=== PATIENT | male | born 1945 | race Caucasian/White ===

== ENCOUNTER 2016-12-18 05:49 | Inpatient (IN) | payer MEDICARE ==
[2016-12-11 21:06] LABS: BASOPHILS 0.5 %; BASOPHILS ABSOLUTE 0.04 10/3/uL (0.0-0.16); EOSINOPHILS 5.3 %; EOSINOPHILS ABSOLUTE 0.39 10/3/uL (0.0-0.53); IMMATURE GRANULOCYTES 0.1 %; IMMATURE GRANULOCYTES ABSOLUTE 0.01 10/3/uL (0.0-0.11); LYMPHOCYTES 22.6 %; LYMPHOCYTES ABSOLUTE 1.65 10/3/uL (0.67-4.30); MEAN PLATELET VOLUME 10.3 fL (9.2-13.0); MONOCYTES 7.5 %; MONOCYTES ABSOLUTE 0.55 10/3/uL (0.21-1.20); NEUTROPHILS ABSOLUTE 4.66 10/3/uL (2.02-8.40); RBC DISTRIBUTION WIDTH 14.8 % (12.0-16.0); RED CELL COUNT 4.98 10/6/uL (4.7-6.1); WHITE BLOOD CELLS 7.3 10/3/uL (4.5-10.5)
[2016-12-11 21:07] LABS: HEMATOCRIT 47.8 % (40.0-51.0); HEMOGLOBIN 16.1 g/dL (13.6-17.8); MEAN CORPUS HGB CONC 33.7 g/dL (32.0-36.0); MEAN CORPUSCULAR HEMOGLOB 32.3 pg (26.0-34.0); PLATELET COUNT 168 10/3/uL (150-400)
[2016-12-11 21:08] LABS: MANUAL DIFF NO %
[2016-12-11 21:16] LABS: CALCIUM, SERUM 9.3 MG/DL (8.5-10.4); CHLORIDE, SERUM 104 MMOL/L (96-112); CO2 (CARBON DIOXIDE) 28 MMOL/L (24-34); CREATININE 1.88 MG/DL (0.70-1.30); GFR AFRICAN AMERICAN 40 ML/MIN (>=60); GFR NON AFRICAN AMERICAN 35 ML/MIN (>=60); POTASSIUM, SERUM 4.3 MMOL/L (3.5-5.3); SODIUM, SERUM 140 MMOL/L (135-148)
[2016-12-11 21:17] LABS: BUN (BLOOD UREA NITROGEN) 21 MG/DL (6-23); GLUCOSE, SERUM 136 MG/DL (60-99)
[2016-12-11 21:18] LABS: ASCORBIC ACID (UR NOT ORDER) NEG (NEG); BILIRUBIN, URINE NEGATIVE (NEG); KETONE, URINE NEGATIVE (NEG); LEUKOCYTE ESTERASE(NOT OR NEG (NEG); WBC (NOT ORDERED) (RFLEX) < 1 (0-5)
[2016-12-11 21:24] LABS: PROTIME (NOT ORD) 13.4 SEC (12.0-14.5)
--- NOTE | ~2016-12-18 | OP ---
Record Of Operation [facility] [address] [place]. [address] NAME: OSMIN RAMÍREZ : 41 STATUS : ADM IN PAT#: [id number] AGE: 71 ADM/REG DATE : 12/18/16 MR#: [id number] REPORT SERV DATE: 12/19/16 DICTATED BY: BERNABE CORONADO DATE: 12/18/16 REPORT STATUS : Draft TRANSCRIBED BY: MODL DATE: 12/18/16 DATE OF PROCEDURE: 12/18/2016 SURGEON: Bernabe Coronado MD OPERATIVE CONTACT WORKER: DULCE Galvez COMPLICATIONS: None. ESTIMATED BLOOD LOSS: Less than 150 mL. DISPOSITION: Stable to recovery room. ANESTHESIA: General with interscalene block augmentation for postoperative pain control. PREOPERATIVE DIAGNOSES: 1. Right shoulder pain. 2. End-stage glenohumeral joint osteoarthritis. POSTOPERATIVE DIAGNOSIS: 1. Right shoulder pain. 2. End-stage glenohumeral joint osteoarthritis. OPERATIVE PROCEDURE: Right total shoulder arthroplasty using Biomet comprehensive total shoulder system. IMPLANTS USED: A 4 mm large glenoid component with Regenerex post, a 54 x 21 mm modular head with C offset, and an 11 x 83 mm mini-humeral stem. OPERATIVE PROCEDURE: The diagnoses listed above as well as the recommended surgical procedure and risks and benefits thereof were discussed in full detail with John Ramírez and family on the morning of 12/18/2016. The patient and family asked appropriate questions which were answered to their satisfaction. An informed consent was signed, witnessed, and place in the chart. The right upper extremity was marked for confirmation and an interscalene block was placed by the anesthesia team with good success. The patient was then wheeled to the operative arena where general endotracheal anesthesia was administered. The patient was placed in the beachchair positioner with all nonoperative extremities and head well padded and secured for the duration of the case. The patient received pre- operative antibiotics. A surgical pause was performed confirming both the correct patient as well as the proper surgical site and procedure. All present were in agreement. All standard anatomical landmarks as well as deltopectoral incision site were demarcated using a sterile marking pin. A 10-blade was used to create an 8 cm curvilinear incision just lateral to the coracoid process and directed towards the lateral insertion of the deltoid. The soft tissues were dissected down sharply to expose the deltopectoral fascia. The cephalic vein and the fat stripe were identified. The vein was retracted medially using Record Of Operation [facility] [address] [place]. [address] NAME: OSMIN RAMÍREZ : 41 STATUS : ADM IN PAT#: [id number] AGE: 71 ADM/REG DATE : 12/18/16 MR#: [id number] REPORT SERV DATE: 12/19/16 DICTATED BY: BERNABE CORONADO DATE: 12/18/16 REPORT STATUS : Draft TRANSCRIBED BY: EVELYN DATE: 12/18/16 careful sharp dissection. Next, a Donohue Loza retractor was placed retracting the deltoid laterally and the pectoralis and coracobrachialis medially. The deltopectoral interval was the further exposed and the clavipectoral fascia was identified. Electrocautery was used to split the clavipectoral fascia exposing the anterior surface of the subscapularis. The lesser tuberosity was identified and the subscapularis was released 1 cm medial to the lesser tuberosity. The subscapularis was then tagged using Fiber Wire suture for later repair. The biceps tendon was then released and tagged as well for later tenodesis. The glenohumeral joint was then dislocated and the humeral head was brought out the operative wound very carefully. All osteophytes were then removed using a rongeur. Our starting awl was used with increasing sizes of diaphyseal reamers to obtain the best fit with excellent cortical chatter. The intramedullary cutting jig was then assembled and set with the appropriate version to meet the patient's normal anatomy. An oscillating saw was then used to make our proximal humeral cut. The proximal humeral portion of the head was then taken to the back table and measured and matched up with our trial implants. Next, the broaches were used in increasing sizes up to the size which fit most perfectly. The head protector was placed and the proximal humerus was retracted posteriorly and inferiorly out of the way of the glenoid. The labrum was then excised in full using electrocautery. All additional osteophytes and osteochondral loose bodies were removed. Next, the glenoid reamers were used to ream the glenoid down to a healthy bleeding bone surface. Our central peg hole was then drilled and our peg guide was used to drill the subsequent three peg holes. A coring drill was then used to core for the glenoid post. A trial glenoid was then placed and found to fit perfectly. Next, the cement was mixed and placed into the peg holes. A polyethylene glenoid was assembled with an appropriate post and tapped into place. An excellent scratch fit was obtained. Pulsatile lavage was used to irrigate this implant as well as the glenohumeral joint. The proximal humerus was again brought out the operative wound. Trial humeral head implants were then tested. The stem was implanted into the proximal humerus after copious irrigation with sterile saline. This was impacted into place. Our Versa Dial was set and then impacted on the back table with an excellent Thorne-Taper fit. This was then placed into the proximal humeral stem component and impacted into place with excellent security. At this juncture, the glenohumeral joint was then reduced once again. The glenohumeral joint alignment was near anatomic. Irrigation was used under pulsatile lavage to irrigate out the operative wound as well as the implants. Bone holes had been predrilled through the lesser tuberosity and four #2 Fiber Wire sutures were passed through this region. These were then taken through the soft tissues laterally and then tied down to our previously placed subscapularis sutures. An excellent repair of the subscapularis was obtained back down to the lesser tuberosity with no instability whatsoever. The biceps tendon was then tenodesed. The rotator interval was then closed also with #2 Fiber Wire suture. This layer was then again washed out with pulsatile lavage and copious amounts of sterile normal saline. The patient did demonstrate moderate oozing throughout the case likely due to his continuation of the Plavix up to the date of surgery. This was all very controlled and was not to the point of needing tranexamic acid. We did, however, go ahead and put a Hemovac drain in just below the deltopectoral interval to allow for evacuation of any continued oozing and avoid the risk of postoperative hematoma. The deltopectoral interval was closed with 2-0 undyed Vicryl. 2-0 undyed Vicryl was used to close the subcutaneous layer and a running Monocryl was placed below the skin. Steri-Strips were applied. Sterile dressing was then secured [address] [place]. [address] NAME: SOMIN RAMÍREZ : 41 STATUS : ADM IN [facility]#: [id number] AGE: 71 ADM/REG DATE : 12/18/16 MR#: [id number] REPORT SERV DATE: 12/19/16 DICTATED BY: BERNABE CORONADO. DATE: 12/18/16 REPORT STATUS : Draft TRANSCRIBED BY: MODL DATE: 12/18/16 with Medipore tape. The patient was placed in an Ultra-Sling for post-operative immobilization. The patient was then awakened from anesthesia without difficulty and transferred to the post-anesthesia care unit in stable condition where the postoperative examination was within normal limits understanding that the interscalene block was still in affect. A lengthy discussion was held with the patient's family detailing all operative findings as well as procedures performed with all questions answered to their satisfaction. CCS/EVELYN Bernabe Coronado M.D. / [id number] CC: Enriqueta Trujillo D.O. F.A.C.P.
[~2016-12-18 05:49] MED LIST: AMARYL4 PO; ASA5GR PO; ASAB PO; ASABAYER PO; AVAP150 PO; BRILINTA90 MG PO; BUM2 PO; COREG6 PO; CYMBALTA60 PO; DIABET2.5 PO; DIABETA5 PO; DITROPAN XL10 MG PO; FERROUS SULF325 M1 PO; FISH OIL PO; ISORDIL20 PO; K-TABS10 MEQ PO; KLOR-CON M2020 MEQ PO; L40 PO; LANTUS SC; LANTUSCART SC; LOP25 PO; MICRONASE2.5 MG PO; MONO20 PO; MYRBETRIQ25 MG PO; NEUR300 PO; NEUR600 PO; NORCO1 TA1 PO; PLAVIX PO; PROSCAR5 PO; TESTOSTERONE IM; TOPXL25 PO; TRAZ50 PO; ULTRAM50 PO; VESICARE5 PO; VITAMIN D31000 UNIT PO; Z300 PO; ZOCOR20 PO
[2016-12-18 07:31] LABS: INTERNATIONAL NORMAL RATI 0.9 UNITS (-); PROTIME (NOT ORD) 12.4 SEC (12.0-14.5)
[2016-12-19 06:56] LABS: HEMATOCRIT 39.4 % (40.0-51.0); HEMOGLOBIN 13.1 g/dL (13.6-17.8)
[2016-12-19 07:08] LABS: CHLORIDE, SERUM 109 MMOL/L (96-112); CO2 (CARBON DIOXIDE) 24 MMOL/L (24-34); CREATININE 1.54 MG/DL (0.70-1.30); GFR AFRICAN AMERICAN 51 ML/MIN (>=60); GFR NON AFRICAN AMERICAN 44 ML/MIN (>=60); SODIUM, SERUM 139 MMOL/L (135-148)
[2016-12-19 07:09] LABS: BUN (BLOOD UREA NITROGEN) 25 MG/DL (6-23); CALCIUM, SERUM 7.8 MG/DL (8.5-10.4); GLUCOSE, SERUM 171 MG/DL (60-99)
[2016-12-19] MEDS ORDERED: PCET PO (08:46)
[2016-12-19] MEDS ORDERED: ZOFRAN4 PO (08:47)
[2016-12-19] MEDS ORDERED: OXYCON10 PO (08:47)
== END 2016-12-19 11:35 | disposition home or self-care (01) | DRG 483 ==
LOC: SDC/OF 05:49 → PACU 12:23 → 4SO 13:51
PROVIDERS: Specialist
PROC: 0RRJ0JZ Replacement of Right Shoulder Joint with Synthetic Substitute, Open Approach (ICD-10-PCS; principal; 2016-12-18 08:00)
DX: M19.011 Primary osteoarthritis, right shoulder (principal); E11.22 Type 2 diabetes mellitus with diabetic chronic kidney disease; I25.10 Atherosclerotic heart disease of native coronary artery without angina pectoris; Z95.1 Presence of aortocoronary bypass graft; E66.01 Morbid (severe) obesity due to excess calories; Z68.35 Body mass index [BMI] 35.0-35.9, adult; Z79.02 Long term (current) use of antithrombotics/antiplatelets; G47.33 Obstructive sleep apnea (adult) (pediatric); I12.9 Hypertensive chronic kidney disease with stage 1 through stage 4 chronic kidney disease, or unspecified chronic kidney disease; N18.9 Chronic kidney disease, unspecified; Z90.5 Acquired absence of kidney; Z79.82 Long term (current) use of aspirin; Z79.84 Long term (current) use of oral hypoglycemic drugs; Z79.891 Long term (current) use of opiate analgesic; Z79.4 Long term (current) use of insulin; Z88.8 Allergy status to other drugs, medicaments and biological substances; Z88.5 Allergy status to narcotic agent; M79.7 Fibromyalgia; Z95.5 Presence of coronary angioplasty implant and graft; Z85.46 Personal history of malignant neoplasm of prostate; I44.0 Atrioventricular block, first degree; Z72.0 Tobacco use
CPT/HCPCS: 36415; 73030-RT; 80048; 81001; 82962; 85014; 85018; 85025; 85610; 86850; 86900; 86901; 87641; 88305; 88311; 93005; 97161-GP; A9270-GY; C1776; G8978-CH-GP; G8979-CH-GP; G8980-CH-GP; J0330; J0690; J2250; J2370; J2405; J2710; J2795; J3010; J3370